=== PATIENT | female | born 1940 | race Caucasian/White ===

== ENCOUNTER → 2017-01-15 | Outpatient (CLI) | payer OTHER | LOC: FIMAGING 10:36 | PROVIDERS: ATTEND Internal Medicine Hematology & Oncology | DX: Z12.31 Encounter for screening mammogram for malignant neoplasm of breast (principal); Z85.3 Personal history of malignant neoplasm of breast; Z90.11 Acquired absence of right breast and nipple | CPT/HCPCS: G0202-52 ==

== ENCOUNTER → 2017-09-17 | Outpatient (CLI) | payer OTHER | LOC: FIMAGING 09:09 | PROVIDERS: ATTEND Urology | DX: R31.29 Other microscopic hematuria (principal); N39.0 Urinary tract infection, site not specified ==

== ENCOUNTER 2017-10-18 10:59 | Inpatient (IN) | payer OTHER ==
--- NOTE | 2017-10-18 11:21 | EDPHY ---
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 She has reproducible pain with movement and range of motion. No head injury. Not a syncopal episode, purely mechanical. No peripheral paresthesia, weakness, numbness. No head injury. No midline C- spine pain or injury. REVIEW OF SYSTEMS: A ten point review of systems was performed and is negative with the exception of the items mentioned in the HPI PAST MEDICAL/SURGICAL HISTORY: Left hip fracture . No anticoagulant use SOCIAL HISTORY: denies alcohol use at time of incident PHYSICAL EXAM 1) GENERAL: Well-developed, well-nourished, alert and oriented. Appears uncomfortable specially when asked to move from the ambulance prior am to the bed. Answering questions appropriately. 2) HEAD: Normocephalic, atraumatic 3) HEENT: Pupils equal, round, reactive to light bilaterally. Negative Horners. Nasopharynx, oropharynx, clear. No deformity or angulation of nose. No septal hematoma. No rhinorrhea. No oral trauma. Ears bilaterally with normal tympanic membranes. No hemotympanum. No fluid or blood in the external auditory canal. No raccoon eyes. No Escoto sign. 4) NECK: No cervical collar is on. Posterior cervical spine is nontender, no stepoff, no effusion. Full range of motion which does not elicit any midline cervical spine pain, no posterior midline tenderness, no step-off. 5) LUNGS: Clear to auscultation bilaterally, no wheezes, no rhonchi, no retractions. No obvious signs of trauma. No chest wall pain. No flaring, no grunting. Moving symmetrically. No crepitus. 6) HEART: [Regular rate and rhythm, 7) ABDOMEN: No guarding, no rebound, no focal tenderness, no peritoneal signs, no signs of trauma, no ecchymosis 8) MUSCULOSKELETAL: Left upper extremity: No shortening no malrotation. Exquisite amount of pain to the proximal femur with passive range of motion . Soft compartments. Distal DP PT pulses present and brisk. Soft compartments. Tender to palpation left inferior buttock. Otherwise, Moving all extremities, no focal areas of tenderness, no obvious trauma. 9) BACK: No midline vertebral tenderness, no fluctuance, no step-off, no obvious trauma, no visual or palpable abnormality. 10) SKIN: No laceration. No abrasion DIFFERENTIAL DIAGNOSIS: In no particular order including but not limited to fracture, dislocation, sprain, strain, compartment syndrome (Jun Guerin) Constitutional: Initial Vital Signs Temperature (C) 36.7 C 10/18/17 11:05 Heart Rate 72 10/18/17 11:05 Respiratory Rate 18 10/18/17 11:05 Blood Pressure 161/92 H 10/18/17 11:05 O2 Sat (%) 97 10/18/17 11:05 O2 Delivery Mode Room Air Allergies/Adverse Reactions: nitrofurantoin [From Macrobid] Allergy (Verified 10/18/17 11:08) No Allergies [NKA] Allergy (Verified 04/14/11 12:34) Home Medications: Medication Instructions Recorded Herbals/Supplements -Info Only 1 ea PO AD 03/06/15 Methylcellulose (with Sugar) 19 gm PO DAILY 03/06/15 [Citrucel Powder 19 gm (RX)] Multivitamins [Multivitamin (*)] 1 each PO DAILY 03/06/15 [place]-3 Fatty Acids [Fish Oil 1000 1,000 mg PO DAILY 03/06/15 mg (*)] Atorvastatin Calcium [Lipitor 20 20 mg PO HS 10/18/17 mg (*)] Escitalopram Oxalate [Lexapro] 10 mg PO HS 10/18/17 Medical Decision Making - Diagnostics Imaging Results: Images reviewed by myself (Jun Guerin) ED Course/Re-evaluation: The patient was re-evaluated with serial examinations. She is noted to have a superior and inferior pubic ramus fracture on the left side. I do not think that discharge is appropriate for this patient as she is unable to ambulate either on her own with crutches safely. Plan will be admission for physical therapy and likely transfer to rehabilitation unit.. Patient was also seen and examined by Dr. Jazmyne Raymundo in the ER. Patient has a pre-existing relationship with Dr. Modesto Bonilla and requests that he be consulted if he is available. 1:53 p.m.: Consultation with hospitalist Peyton, admit to Dr. Magan Garcia. Dr. Modesto Bonilla is out of town and not available for consultation. On-call orthopedic surgeon will be consulted. 2:48 p.m.: I consulted with the circulating nurse for Dr. Yonas Ruby and conveyed the patient's information and need for consultation. (Jun Guerin) I have evaluated and participated in the management of this patient. My co- signature indicates that I have reviewed this chart and that I agree with the findings and the plan of care as documented. My personal history and physical findings include: 77-year-old female with history of left hip fracture who presents after falling onto her left hip and buttock while exercising this morning. There were no preceding events that caused her to fall, this was a mechanical fall. She did not strike her head. She is complaining of left hip and pelvic pain. No other complaints. On examination she is awake and alert. She has no neck or back pain with palpation. Lungs are clear to auscultation anterolaterally. Heart has a regular rate and rhythm. Abdomen is soft and nontender. She has tenderness over the left hip and pelvis with no apparent instability. Sensation is intact to light touch over both lower extremities. 2 + dorsalis pedis pulses bilaterally. I reviewed her x-rays which reveal superior and inferior pubic ramus fracture on the left. CT scan result also reviewed. She is unable to ambulate with crutches and will require hospitalization with orthopedic consultation. (Jazmyne Raymundo) - Data Points Laboratory Results: Laboratory Results 10/18/17 11:45 10/18/17 11:45 Medications Given: Atorvastatin Calcium (Lipitor) 20 mg PO HS [facility]IA Stop: 04/16/18 20:59 Last Admin: 10/19/17 21:08 Dose: 20 mg Enoxaparin Sodium (Lovenox) 40 mg SC DAILY [facility] DELIA Stop: 04/17/18 08:59 Last Admin: 10/20/17 08:49 Dose: 40 mg Escitalopram Oxalate (Lexapro) 10 mg PO HS [facility] Stop: 04/16/18 20:59 Last Admin: 10/19/17 21:08 Dose: 10 mg Guar Gum (Benefiber/Nutrisource Fiber) 1 each PO DAILY [facility] Stop: 04/17/18 10:59 Last Admin: 10/20/17 08:52 Dose: 1 each Hydromorphone/Sodium Chloride (Hydromorphone) 0.2 - 0.4 mg IVP Q4HRS PRN PRN Reason: Pain, Severe Unable to Take PO Stop: 10/28/17 14:12 Last Admin: 10/18/17 15:06 Dose: 0.2 mg Melatonin (Melatonin) 3 mg PO HS [facility] DELIA Stop: 04/16/18 20:59 Last Admin: 10/19/17 21:08 Dose: 3 mg Multivitamins (Tab-A-Vic) 1 each PO DAILY [facility] Stop: 04/17/18 08:59 Last Admin: 10/20/17 08:50 Dose: 1 each Tjuyg-8-Nylx Ethyl Esters (Fish Oil) 1,000 mg PO DAILY [facility] DELIA Stop: 04/17/18 08:59 Last Admin: 10/20/17 08:50 Dose: 1,000 mg Oxycodone/Acetaminophen (Percocet 5/325) 1 - 2 tab PO Q4HRS PRN PRN Reason: Pain, Severe Able to Take PO Stop: 10/28/17 14:12 Last Admin: 10/20/17 05:50 Dose: 2 tab Polyethylene Glycol (Miralax) 17 gm PO DAILY PRN; Protocol PRN Reason: Constipation, patient prefers Stop: 04/17/18 09:58 Last Admin: 10/20/17 08:52 Dose: 17 gm Senna/Docusate Sodium (Senokot-S) 1 - 2 tab PO BID [facility] DELIA PRN Reason: Protocol Stop: 04/17/18 10:14 Last Admin: 10/20/17 08:52 Dose: 2 tab Discontinued Medications Hydromorphone HCl (Dilaudid) 1 mg IVP EDNOW ONE Stop: 10/18/17 11:37 Last Admin: 10/18/17 11:46 Dose: 1 mg Miscellaneous Medication (Methylcellulose (With Sugar) [Citrucel Powder 19 Gm ( Rx)]) 19 gm PO DAILY [facility] DELIA Stop: 04/17/18 08:59 Last Admin: 10/19/17 08:58 Dose: Not Given Ondansetron HCl (Zofran) 4 mg IVP EDNOW ONE Stop: 10/18/17 11:41 Last Admin: 10/18/17 11:46 Dose: 4 mg Departure - Departure Disposition: [facility] Inpatient Acute Clinical Impression: Fracture of left inferior pubic ramus Qualifiers: Encounter type: initial encounter Fracture type: closed Qualified Code(s): S32.592A - Other specified fracture of left pubis, initial encounter for closed fracture Fracture of left superior pubic ramus Qualifiers: Encounter type: initial encounter Fracture type: closed Qualified Code(s): S32.512A - Fracture of superior rim of left pubis, initial encounter for closed fracture Condition: Fair
[2017-10-18] MEDS ORDERED: HYDROmorphONE/DILAUDID 1 MG/ML INJ IVP ONE (11:36)
[2017-10-18] MEDS ORDERED: ONDANSETRON 4 MG/2 ML VIAL IVP ONE (11:40)
[2017-10-18] MEDS ORDERED: HYDROmorphONE/DILAUDID 2 MG/ML INJ ONE (11:43)
[2017-10-18 12:00] LABS: PLATELET COUNT 166 10^3/uL (150-400)
[2017-10-18] MEDS ORDERED: ONDANSETRON DISINTEGRATING 4 MG TAB PO PRN (14:13)
[2017-10-18] MEDS ORDERED: ONDANSETRON 4 MG/2 ML VIAL IVP PRN (14:13)
[2017-10-18] MEDS ORDERED: ACETAMINOPHEN 325 MG TAB PO PRN (14:13)
[2017-10-18] MEDS ORDERED: HYDROmorphONE/DILAUDID 1 MG/ML INJ IVP PRN (14:13)
[2017-10-18] MEDS ORDERED: Herbals/Supplements -Info Only PO SCH (14:30)
[2017-10-18] MEDS ORDERED: HYDROmorphone HCL/NS 0.5 MG/ML SYR IVP PRN (15:00)
[2017-10-18] MEDS: OXYCODONE/APAP 5/325 TAB PO PRN ×2 (15:07→19:56)
--- NOTE | 2017-10-18 15:44 | GHP ---
[f rep st] HISTORY AND PHYSICAL DATE OF ADMISSION: 10/18/2017 CHIEF COMPLAINT: Left hip pain. HISTORY OF PRESENT ILLNESS: A 77-year-old female with limited past medical history, who had a mechan ical fall the morning of presentation and had subsequent severe pain of the left hip. 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 Patient presented to the emergency department. Upon my evaluation, patient is den babita any headache, vision changes, dizziness, chest pain, palpitation, shortness of breath. Denies a ny changes in her bowel habits. Denies any diarrhea, constipation, melena, dysuria, hematuria. Is h aving pain at the left hip. Denies any rashes, myalgias, or recent sick contacts. PAST MEDICAL HISTORY: 1. Hyperlipidemia. 2. History of a left hip replacement by Dr. Bonilla. SOCIAL HISTORY: Negative for tobacco. Drinks alcohol a couple times a month. No illicit drugs or m arijuana. FAMILY HISTORY: Positive for hyperlipidemia. REVIEW OF SYSTEMS: A 10-point review of systems is negative with the exception of that reported in t he HPI. ADVANCED DIRECTIVES: Patient is full cor, full tube. Her would be her medical decision make r. PHYSICAL EXAMINATION: VITAL SIGNS: Blood pressure 154/78, heart rate 74, respiratory rate 20, satti ng 94% on room air, 36.8. GENERAL: This is a very healthy-appearing, pleasant elderly female lying flat in bed. HEENT: Notable for moist mucous membranes. Eyes: Negative for any icterus. CARDIAC: Patient is regular rate and rhythm. No murmurs, gallops, or rubs. PULMONARY: Patient is clear to auscultation bilaterally. GASTROINTESTINAL: Positive bowel sounds. ABDOMEN: Soft and nontender. MUSCULOSKELETAL: Negative for any lower extremity edema. SKIN: Negative for any rashes. NEUROLOG IC: She is alert and oriented x3. PSYCHIATRIC: She is pleasant and cooperative on interview and ex amination. DATA: White count 7.1, hematocrit 44.7, platelets of 166, creatinine 0.6. CT of the pelvis, which I personally reviewed and interpreted, shows a left-sided superior and inferi or pubic rami fracture and a left total hip arthroplasty. ASSESSMENT AND PLAN: This is a 77-year-old female status post mechanical fall with pubic rami fractu re on the left. 1. Acute left pubic rami fracture. The patient has requested that Dr. Bonilla's group be consulted . She is being admitted to the medical floor for pain control, physical therapy, occupational therap y assuming the patient will be weightbearing as tolerated per Orthopedics who will review her case. The patient lives at home with a whom she provides support for. Suspect she may need a stay at rehabilitation prior to returning home. Will await therapy evaluations. 2. Hyperlipidemia. Will continue patient's home medications without change. 3. Prophylaxis with Lovenox. DIET: Regular. DISPOSITION: Expecting greater than 2 midnights as the patient is unable to safely ambulate. Will c ertainly need therapy evaluations and likely rehab placement for safe disposition. I have discussed the case with the emergency room physician. Patient will be triaged to the medical-surgical floor [facility]. /[id number]/MODL
--- NOTE | 2017-10-18 17:29 | GCON ---
[f rep st] CONSULTATION INPATIENT CONSULTATION CHIEF COMPLAINT: Left hip pain. HISTORY OF PRESENT ILLNESS: The patient is a 77-year-old woman who presents today after a mechanical fall across her left side. She was stretching her calves on a small ledge, when she tripped and fel l across her left side. She states she had mild pain to her left elbow and across her left hip. She has a previous history of left hip bipolar replacement by Dr. Modesto Bonilla. She had an intervening fall in which she broke around her left hip, but this was treated conservatively. She denies any ot her focal complaints. She is unable to move secondary to pain. PAST MEDICAL HISTORY: Hyperlipidemia. PAST SURGICAL HISTORY: Left hip bipolar as previous. SOCIAL HISTORY: Denies tobacco. Minimal alcohol. REVIEW OF SYSTEMS: Negative for current chest pain, shortness of breath, belly pain, back pain, numb ness, tingling. She does have mild left elbow tenderness. OBJECTIVE: GENERAL: A healthy woman who is in no acute distress. HEENT: Normocephalic, atraumatic . MUSCULOSKELETAL: Examination of her left upper extremity reveals mild swelling across the left el bow. There is no crepitus, tenderness, step-off, or deformity. She has intact elbow flexion and ext ension with no specific pain. Full pronation and supination. There is a well-healed anterolateral s car to her elbow from a skin cancer excision previously. Examination of her lower extremities reveal s leg lengths to be equal. She is very guarded in her examination currently. Active range of motion at the ankles, plantar flexion and dorsiflexion, is intact. She has no calf swelling or tenderness. Sensation is grossly intact to light touch throughout the lower extremities. She is reluctant to m ove either hip currently, but does demonstrate approximately 10 degrees of active flexion to the left hip. IMPRESSION: CT scan and x-rays demonstrated a left superior inferior pubic rami fracture with minima l displacement. There is an anterior cortical buckle to her left sacral ala. The left hip bipolar e ndoprosthesis is concentrically reduced, there is no fracture or lucency. Left superior and inferior pubic rami fracture. Left sacral fracture. TREATMENT PLAN: I have discussed conservative treatment with her. This is a stable fracture pattern . She is weightbearing as tolerated. Range of motion as tolerated. She will require progressive th erapy and mobilization. She is cleared for anticoagulation per hospitalist service. There is no kandace gical intervention required. I have contacted Dr. Modesto Bonilla. /[id number]/MODL
[2017-10-18] MEDS: ATORVASTATIN CALCIUM 20 MG TAB PO SCH (19:56)
[2017-10-18] MEDS: ESCITALOPRAM OXALATE 10 MG TAB PO SCH (19:56)
[2017-10-18] MEDS: MELATONIN 3 MG TAB PO SCH (22:44)
[2017-10-19] MEDS: OXYCODONE/APAP 5/325 TAB PO PRN ×3 (03:06→21:08)
[2017-10-19 05:02] LABS: PLATELET COUNT 140 10^3/uL (150-400)
--- NOTE | 2017-10-19 07:29 | PDMN ---
Medical Necessity Medical necessity: Pt meets IP criteria per MD; est los >2 mn for eval/tx of acute L pubic rami fx r/t mechanical fall; pt unable to safely ambulate; admit for Ortho consult, pain management & therapies; per H&P & order 10/18/17
[2017-10-19] MEDS: MULTIVITAMINS 1 EACH TAB PO SCH (08:48)
[2017-10-19] MEDS: OMEGA-3 FATTY ACIDS 1,000 MG CAP PO SCH (08:49)
[2017-10-19] MEDS: ENOXAPARIN 40 MG/0.4 ML SYR SC SCH (08:49)
[2017-10-19] MEDS ORDERED: [UNRECOGNIZED DRUG - OTHER] PO SCH (09:00)
[2017-10-19] MEDS ORDERED: METHYLCELLULOSE PO SCH (09:00)
[2017-10-19] MEDS ORDERED: LACTULOSE 20 GM/30 ML UDCUP PO PRN (09:59)
[2017-10-19] MEDS ORDERED: MAGNESIUM HYDROXIDE 30 ML UDCUP PO PRN (09:59)
[2017-10-19] MEDS ORDERED: BISACODYL 10 MG SUPP PR PRN (09:59)
--- NOTE | 2017-10-19 10:18 | ASMTCMCOM ---
CM Note CM Note Notes: Patient admitted with a L hip fracture. Ortho has consulted and does not recommend surgery. Patient may be WBAT and activity as tolerated. It is likely she will need short-term acute rehab. I spoke with her about this, and she agrees that she wouldn't be able to function at home (two-story house) right now. She has been to [facility] in the past and was satisfied with the care there. I have sent a referral to [facility]; we will need to send them PT/OT notes when they are in the chart. Case Management will follow. Date Signed: 10/19/2017 10:17 AM Electronically Signed By:Cecily Del Cid RN
[2017-10-19] MEDS: SENNOSIDES/DOCUSATE SODIUM TAB PO SCH ×2 (11:03→21:08)
[2017-10-19] MEDS: POLYETHYLENE GLYCOL 3350 17 GM PKT PO PRN (11:03)
[2017-10-19] MEDS: BENEFIBER/NUTRISOURCE FIBER PKT 1 EACH PO SCH (11:17)
--- NOTE | 2017-10-19 12:57 | HOSPPROG ---
Hospitalist Progress Note Assessment/Plan: # acute left pubic rami fracture- CT pelvis(personally reviewed and interpreted ) confirms inferior and superior left pubic rami fracture Dr. Ruby consulted overnight confirms weight-bearing and range of motion as tolerated Oxygen saturations 93% on room air - WBC 6.4 - continue p.r.n. Pain meds - continue PT OT - continue bowel regimen - case Management is investigating disposition options # hyperlipidemia- continue statin # prophylaxis Lovenox # diet regular # disposition greater than 2 midnights the patient needs disposition to rehabilitation facility for safety I have discussed the case with case management-they will look into [facility] which is the patient's preference for discharge Subjective: Very painful to move around Objective: Vital Signs Temp Pulse Resp BP Pulse Ox 36.5 C 65 16 92/49 L 93 10/19/17 12:00 10/19/17 12:00 10/19/17 12:00 10/19/17 12:00 10/19/17 12:00 Laboratory Results 10/19/17 04:36 10/19/17 04:36 10/18/17 10/19/17 10/20/17 05:59 05:59 05:59 Intake Total 200 Output Total 400 Balance -200 - Physical Exam Constitutional: no apparent distress Eyes: anicteric sclera Ears, Nose, Mouth, Throat: moist mucous membranes Cardiovascular: regular rate and rhythym Respiratory: no respiratory distress Gastrointestinal: normoactive bowel sounds Genitourinary: no bladder fullness Skin: warm Musculoskeletal: No asymmetric calves Neurologic: AAOx3 Psychiatric: interacting appropriately Lymph, Heme, Immunologic: no cervical LAD ICD10 Worksheet Patient Problems: Problems Problem Status Onset Fracture of left inferior pubic ramus Acute Fracture of left superior pubic ramus Acute Femur fracture, left Acute
[2017-10-19] MEDS: ATORVASTATIN CALCIUM 20 MG TAB PO SCH (21:08)
[2017-10-19] MEDS: MELATONIN 3 MG TAB PO SCH (21:08)
[2017-10-19] MEDS: ESCITALOPRAM OXALATE 10 MG TAB PO SCH (21:08)
[2017-10-20] MEDS: OXYCODONE/APAP 5/325 TAB PO PRN ×3 (05:50→20:43)
[2017-10-20] MEDS: ENOXAPARIN 40 MG/0.4 ML SYR SC SCH (08:49)
[2017-10-20] MEDS: OMEGA-3 FATTY ACIDS 1,000 MG CAP PO SCH (08:50)
[2017-10-20] MEDS: MULTIVITAMINS 1 EACH TAB PO SCH (08:50)
[2017-10-20] MEDS: BENEFIBER/NUTRISOURCE FIBER PKT 1 EACH PO SCH (08:52)
[2017-10-20] MEDS: SENNOSIDES/DOCUSATE SODIUM TAB PO SCH ×2 (08:52→20:42)
[2017-10-20] MEDS: POLYETHYLENE GLYCOL 3350 17 GM PKT PO PRN (08:52)
--- NOTE | 2017-10-20 15:45 | HOSPPROG ---
Hospitalist Progress Note Assessment/Plan: # acute left pubic rami fracture- CT pelvis(personally reviewed and interpreted ) confirms inferior and superior left pubic rami fracture Dr. Ruby consulted overnight confirms weight-bearing and range of motion as tolerated Oxygen saturations 93% on room air - WBC 6.4 - continue p.r.n. Pain meds - continue PT OT - continue bowel regimen - case Management is investigating disposition options # hyperlipidemia- continue statin # prophylaxis Lovenox # diet regular # disposition greater than 2 midnights the patient needs disposition to rehabilitation facility for safety Subjective: pain moderately well controlled Objective: Vital Signs Temp Pulse Resp BP Pulse Ox 36.8 C 59 L 20 116/56 L 96 10/20/17 08:00 10/20/17 08:00 10/20/17 08:00 10/20/17 08:00 10/20/17 08:00 Laboratory Results 10/19/17 04:36 10/19/17 04:36 10/19/17 10/20/17 10/21/17 05:59 05:59 05:59 Intake Total 200 Output Total 400 251 400 Balance -200 -251 -400 - Physical Exam Constitutional: no apparent distress, appears nourished Eyes: PERRL, anicteric sclera Ears, Nose, Mouth, Throat: moist mucous membranes, hearing normal Cardiovascular: regular rate and rhythym, no murmur, rub, or gallop Respiratory: no respiratory distress, no rales or rhonchi Gastrointestinal: normoactive bowel sounds, soft, non-tender abdomen Genitourinary: no bladder fullness, No jasso in urethra Skin: warm, normal color Musculoskeletal: full muscle strength Neurologic: AAOx3 ICD10 Worksheet Patient Problems: Problems Problem Status Onset Fracture of left inferior pubic ramus Acute Fracture of left superior pubic ramus Acute Femur fracture, left Acute
[2017-10-20] MEDS: ESCITALOPRAM OXALATE 10 MG TAB PO SCH (20:43)
[2017-10-20] MEDS: MELATONIN 3 MG TAB PO SCH (20:43)
[2017-10-20] MEDS: ATORVASTATIN CALCIUM 20 MG TAB PO SCH (20:43)
[2017-10-21] MEDS: ENOXAPARIN 40 MG/0.4 ML SYR SC SCH (08:01)
[2017-10-21] MEDS: MULTIVITAMINS 1 EACH TAB PO SCH (08:02)
[2017-10-21] MEDS: SENNOSIDES/DOCUSATE SODIUM TAB PO SCH (08:02)
[2017-10-21] MEDS: OMEGA-3 FATTY ACIDS 1,000 MG CAP PO SCH (08:02)
[2017-10-21] MEDS: BENEFIBER/NUTRISOURCE FIBER PKT 1 EACH PO SCH (08:03)
[2017-10-21] MEDS: OXYCODONE/APAP 5/325 TAB PO PRN ×3 (08:05→16:08)
[2017-10-21 15:19] VITALS: BP 107/59
--- NOTE | 2017-10-21 15:45 | HOSPPROG ---
Hospitalist Progress Note Assessment/Plan: # acute left pubic rami fracture- CT pelvis(personally reviewed and interpreted ) confirms inferior and superior left pubic rami fracture Dr. Ruby consulted overnight confirms weight-bearing and range of motion as tolerated Oxygen saturations 93% on room air - WBC 6.4 - continue p.r.n. Pain meds - continue PT OT - continue bowel regimen - case Management is investigating disposition options # hyperlipidemia- continue statin # prophylaxis Lovenox # diet regular # disposition: to snf today > 30 minutes Subjective: pain improved. amenable to dc Objective: Vital Signs Temp Pulse Resp BP Pulse Ox 37.2 C 63 16 107/59 L 95 10/21/17 15:17 10/21/17 15:17 10/21/17 15:17 10/21/17 15:17 10/21/17 15:17 Laboratory Results 10/19/17 04:36 10/19/17 04:36 10/20/17 10/21/17 10/22/17 05:59 05:59 05:59 Intake Total 350 1100 Output Total 251 400 450 Balance -251 -50 650 - Physical Exam Constitutional: no apparent distress, appears nourished Eyes: PERRL, anicteric sclera Ears, Nose, Mouth, Throat: moist mucous membranes, hearing normal Cardiovascular: regular rate and rhythym, no murmur, rub, or gallop Respiratory: no respiratory distress, no rales or rhonchi Gastrointestinal: normoactive bowel sounds, soft, non-tender abdomen Genitourinary: no bladder fullness, No jasso in urethra Skin: warm, normal color Musculoskeletal: full muscle strength, no muscle tenderness Neurologic: AAOx3 Psychiatric: interacting appropriately ICD10 Worksheet Patient Problems: Problems Problem Status Onset Fracture of left inferior pubic ramus Acute Fracture of left superior pubic ramus Acute Femur fracture, left Acute
--- NOTE | 2017-10-21 15:54 | PDIAF ---
- Diagnosis Diagnosis: pubic ramus fracture Code Status: Full Code - Medication Management Discharge Medications: Medications to Continue on Transfer Herbals/Supplements -Info Only 1 ea PO AD 03/06/15 [Last Taken Unknown] Methylcellulose (with Sugar) [Citrucel Powder 19 gm (RX)] 19 gm PO DAILY [Last Taken 03/06/15 09:00] Multivitamins [Multivitamin (*)] 1 each PO DAILY 03/06/15 [Last Taken 03/06/15 09:00] [place]-3 Fatty Acids [Fish Oil 1000 mg (*)] 1,000 mg PO DAILY 03/06/15 [Last Taken 03/06/15 09:00] Atorvastatin Calcium [Lipitor 20 mg (*)] 20 mg PO HS 10/18/17 [Last Taken ] Escitalopram Oxalate [Lexapro 10 MG] 10 mg PO HS 10/18/17 [Last Taken 10/17/17] Enoxaparin [Lovenox 40 MG (*)] 40 mg SC DAILY syr 10/21/17 [Last Taken Unknown] Polyethylene Glycol 3350 [Miralax 17 gm (*)] 17 gm PO DAILY PRN pkt 10/21/17 [ Last Taken Unknown] Sennosides/Docusate Sodium [Senokot-S] 1 - 2 tab PO BID tab 10/21/17 [Last Taken Unknown] oxyCODONE/APAP 5/325 [Percocet 5/325 (*)] 1 - 2 tab PO Q4HRS PRN tab 10/21/17 [ Last Taken Unknown] Nursing Home Antibiotics: enoxaparin through 10/28 or snf dc Discharge Medications: Refer to the Discharge Home Medication list for PRN reason. - Orders Services needed: Registered Nurse, Physical Therapy, Occupational Therapy Isolation Type: None - Follow Up Care Current Providers and Referrals: Patient,NotPresent [Unknown] - As per Instructions
--- NOTE | 2017-10-21 16:02 | GDS ---
[f rep st] DISCHARGE SUMMARY DISCHARGE DIAGNOSES: 1. Superior pubic ramus fracture. 2. History of hip replacement on the left. She does not have osteoporosis. Please see admission history and physical by Dr. Ernestina Infante. The patient had a mechanical fall. Pe lvis CT revealed a superior ramus fracture. She was seen by Orthopedics. The patient did well with Physical Therapy with good pain control. [facility]. I have recommended an additional 10 days of VTE prophylaxis. /[id number]/MODL
--- NOTE | 2017-10-21 16:28 | ASMTCMCOM ---
CM Note CM Note Notes: Pt medically stable for d/c to [facility], orders sent in [employer]. Meliza knight scheduled van transport for 1645. ANGELIC Mattson to call report. Date Signed: 10/21/2017 04:28 PM Electronically Signed By:INDY Zamora
--- NOTE | 2017-10-22 08:57 | ASDISCHSUM ---
Discharge Information Plan Status:SNF Medically Cleared to Leave: Discharge Date:10/21/2017 05:34 PM CM D/C Disposition:Nursing Home Facility ADT D/C Disposition:Nursing Home Facility Projected Discharge Date:10/21/2017 11:00 AM Transportation at D/C:Wheelchair Van Discharge Delay Reason: Follow-Up Date:10/21/2017 11:00 AM Discharge Slot: Final Diagnosis: Placement Information Referral Type:*Fci/SNF Referral ID:[id number] Provider Name:[facility] Address 1:[address] Address 2: City:[place] Selection Factors: State:[place] Patient Contact Information Contact Name:PAZ Relationship: Address:[address] [place] [address] City:[place] Alternate Phone: State/Zip Code:[place] [address] Email: Financial Information Financial Class:Medicare Primary Plan Desc:MEDICARE INPATIENT Primary Plan Number:[id number] Secondary Plan Desc:[employer] PPO [employer] Secondary Plan Number:[id number] Assessment Information [facility] CM Progress Note CM Note CM Note Notes: Patient admitted with a L hip fracture. Ortho has consulted and does not recommend surgery. Patient may be WBAT and activity as tolerated. It is likely she will need short-term acute rehab. I spoke with her about this, and she agrees that she wouldn't be able to function at home (two-story house) right now. She has been to [facility] in the past and was satisfied with the care there. I have sent a referral to [facility]; we will need to send them PT/OT notes when they are in the chart. Case Management will follow. Date Signed: 10/19/2017 10:17 AM Electronically Signed By:Cecily Del Cid RN [facility] CM Progress Note CM Note CM Note Notes: Pt medically stable for d/c to [facility], orders sent in [employer]. Meliza knight scheduled van transport for 1644. ANGELIC Mattson to call report. Date Signed: 10/21/2017 04:28 PM Electronically Signed By:INDY Zamora Intervention Information Intervention Type:*IM-Signed Date of Service:10/21/2017 03:50 PM Patient Type:Inpatient Staff Member:Viktoria Stephens Hours: Discipline: Severity: Comment:
== END 2017-10-21 17:34 | DRG 536 ==
LOC: EDUNIT# → F3N 14:43
PROVIDERS: ADMIT Internal Medicine; ATTEND Hospitalist
DX: S32.592A Other specified fracture of left pubis, initial encounter for closed fracture (principal); Y93.B9 Activity, other involving muscle strengthening exercises; W18.30XA Fall on same level, unspecified, initial encounter; E78.5 Hyperlipidemia, unspecified; K21.9 Gastro-esophageal reflux disease without esophagitis; Z85.3 Personal history of malignant neoplasm of breast; Z96.642 Presence of left artificial hip joint
CPT/HCPCS: 96374; 97116-GP; 97161-GP; 97165-GO; 97530-GO; 97530-GP; 97535-GO; G8978-GP-CK; G8979-GP-CI; G8987-GO-CK; G8988-GO-CJ; J1170; J1650; J2405

== ENCOUNTER → 2018-01-24 | Outpatient (CLI) | payer OTHER | LOC: FIMAGING 11:23 | PROVIDERS: ATTEND Internal Medicine Hematology & Oncology | DX: Z12.31 Encounter for screening mammogram for malignant neoplasm of breast (principal); Z85.3 Personal history of malignant neoplasm of breast; Z80.3 Family history of malignant neoplasm of breast; Z90.11 Acquired absence of right breast and nipple ==